=== PATIENT | male | born 2000 | race Caucasian/White ===

== ENCOUNTER 2023-08-06 15:04 | Emergency (ER) | payer OTHER, SELFPAY ==
[2023-08-06 15:33] VITALS: BP 132/89; PULSE 61; RESP 16; TEMP 37.6; O2SAT 100; BMI 32.8
--- NOTE | 2023-08-06 17:51 | ED_ITS ---
HPI - Back Pain/Injury <PAIGE Sierra - Last Filed: 08/06/23 17:57> General Chief Complaint: Back Pain/Injury Stated Complaint: Lower back pain Time Seen by Provider: 08/06/23 17:32 Source: patient History of Present Illness HPI Narrative: 22-year-old male, active duty member, presents to the emergency department with low back pain x2 days. Patient is a Load master on a [employer] and does not recall hurting his back, but noticed that it was stiff after exiting the playing and difficult and painful to move the following morning. Patient denies any loss of control of bowel or bladder, bilateral leg numbness and tingling or inability to stand or walk. Patient does endorse a hereditary issue with low back, even though he is never injured his back in the past. Related Data Previous Rx's Medication Instructions Recorded methocarbamol 500 mg tablet 500 mg PO TID 3 days #9 tabs 08/06/23 methylprednisolone 4 mg tablets in See Rx Instructions PO .COMPLEX 08/06/23 a dose pack (Medrol (Gilson)) #21 ea Allergies Allergy/AdvReac Type Severity Reaction Status Date / Time No Known Drug Allergies Allergy Verified 08/06/23 15:28 Review of Systems <PAIGE Sierra - Last Filed: 08/06/23 17:57> Review of Systems Narrative: Narrative: See HPI. GENERAL: Denies chills, fatigue, fever, sweats. RESPIRATORY: Denies dyspnea, cough, wheezing, sputum. CARDIOVASCULAR: Denies chest pain, palpitations, edema. GASTROINTESTINAL: Denies nausea, vomiting, abdominal pain, diarrhea, constipation. : Denies dysuria, frequency, incontinence, hematuria, urinary retention, flank pain, loss of control of bowel or bladder. MSK: Denies weakness, joint pain, or bony pain. SKIN: Denies rash, skin lesions, or pruritis. NEUROLOGIC: Denies weakness, dizziness, headache, numbness or tingling, confusion. Patient History <PAIGE Sierra - Last Filed: 08/06/23 17:57> Social History Smoking Status: Never smoker Smoking Status: Never smoker alcohol intake frequency: holidays/special occasions only Substance Use Type: does not use Exam <PAIGE Sierra - Last Filed: 08/06/23 17:57> Narrative Exam Narrative: Exam Narrative: GENERAL: This is a well-nourished, well-developed patient, in no acute distress. HEAD: Atraumatic. Normocephalic. EYES: Pupils equal round and reactive. No scleral icterus, injection or drainage. ENT: Nose without bleeding, purulent drainage. Airway patent. CARDIOVASCULAR: Regular rate and rhythm without murmurs, peripheral pulses intact, cap refill <2 sec. RESPIRATORY: Breath sounds equal and clear bilaterally. No wheezes, rales, or rhonchi. No cough. No increased respiratory effort. No accessory muscle use. MSK: Moves all extremities. Normal range of motion, no clubbing or edema. Neurovascularly intact. NEURO: A&O x 3. SKIN: Warm, dry, no rashes or lesions noted. BACK rubber heel and sole press tender but free of any obvious external abnormalities. There is no asymmetry, swelling, bruising or wound. There is no paraspinal tenderness or CVA tenderness. SI joints nontender. No pain over spinous processes. No symptoms of cauda equina such as saddle anesthesia. Sensation is grossly intact. ROM is limited in the flexion and extension due to pain. Resistive strengths are within normal limits Gait is normal. Heel toe balance is intact. Initial Vital Signs Initial Vital Signs: Vital Signs Temperature 99.6 F 08/06/23 15:33 Pulse Rate 61 08/06/23 15:33 Respiratory Rate 16 08/06/23 15:33 Blood Pressure 132/89 08/06/23 15:33 Pulse Oximetry 100 08/06/23 15:33 Oxygen Delivery Method Room Air 08/06/23 15:33 Reviewed <Federico Ratliff MD - Last Filed: 08/07/23 18:43> Initial Vital Signs Initial Vital Signs: Vital Signs Temperature 99.6 F 08/06/23 15:33 Pulse Rate 61 08/06/23 15:33 Respiratory Rate 16 08/06/23 15:33 Blood Pressure 132/89 08/06/23 15:33 Pulse Oximetry 100 08/06/23 15:33 Oxygen Delivery Method Room Air 08/06/23 15:33 Course <PAIGE Sierra - Last Filed: 08/06/23 17:57> Vital Signs Vital signs: Vital Signs - 8 hr 08/06/23 15:33 Temperature 99.6 F Pulse Rate 61 Respiratory Rate 16 Blood Pressure 132/89 Pulse Oximetry 100 Oxygen Delivery Method Room Air <Federico Ratliff MD - Last Filed: 08/07/23 18:43> Vital Signs Vital signs: Vital Signs - 8 hr 08/06/23 15:33 Temperature 99.6 F Pulse Rate 61 Respiratory Rate 16 Blood Pressure 132/89 Pulse Oximetry 100 Oxygen Delivery Method Room Air MDM - Back Pain/Injury <PAIGE Sierra - Last Filed: 08/06/23 17:57> Differential Diagnosis Differential diagnosis: Likely lumbar radiculopathy, sciatica and strain of lumbar region MDM Narrative Medical decision making narrative: 22-year-old male with low back strain. Assessment was consistent with a low back strain. No neuro deficits. Consideration included that injury was non- traumatic, patient is not a IV drug user, no fever, neurovascular intact, no weakness, no signs of epidural abscess or saddle anesthesia. Discussed supportive care measures that include rest, gentle range of motion stretching exercises, hot or cold compresses, core exercises, NSAIDs and will trial a Medrol Dosepak and muscle relaxers. 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 Work note provided. Discussed plan of care and return precautions with patient and spouse, who verbalized understanding and were agreeable with course of action. <Federico Ratliff MD - Last Filed: 08/07/23 18:43> MDM Narrative Medical decision making narrative: 22-year-old male with low back strain. Assessment was consistent with a low back strain. No neuro deficits. Consideration included that injury was non- traumatic, patient is not a IV drug user, no fever, neurovascular intact, no weakness, no signs of epidural abscess or saddle anesthesia. Discussed supportive care measures that include rest, gentle range of motion stretching exercises, hot or cold compresses, core exercises, NSAIDs and will trial a Medrol Dosepak and muscle relaxers. 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 Work note provided. Discussed plan of care and return precautions with patient and spouse, who verbalized understanding and were agreeable with course of action. I was immediately available in the department for consultation. Documentation has been reviewed. I agree with assessment and plan. Discharge Plan Departure Patient Disposition: Home Clinical Impression: Acute low back pain Instructions: DI for Low Back Pain Activity Restrictions/Additional Instructions: *You have been diagnosed with a low back strain. This may take some time to recover so good supportive care that includes rest, gentle range of motion stretching exercises, hot or cold compresses to the affected site, ibuprofen 800 mg 3 times a day with food for the next 3-5 days. Take the prednisone and muscle relaxers as prescribed. Please follow-up with your family doctor, but should take off the rest of the week to ensure your symptoms have improved. For any worsening symptoms that include numbness and tingling or loss of control of bowel or bladder, please come to the emergency department immediately. *What to do: *Please continue to take your regular medications as directed. [x ] New medication prescriptions sent to your pharmacy: [[facility]] [ ] New medication written as a paper prescription [ ] No new medications given *Please follow up with your primary care provider in 2-3 days, call for an appointment. Let them know you were seen in the Emergency Department and that we ask that you be seen in follow up. We will electronically transmit a record of today's note if your PCP is in our system *If you do not have a primary care provider please contact the [facility] Resource line at [phone]. They will ask some questions about your medical history and help get you set up with a doctor in the community. ? Return to ER if you should have any new, worsening or concerning symptoms, such as worsening pain, severe headache, confusion, chest pain, difficulty breathing, fever greater than 101 F, shaking chills, persistent vomiting to the point that you cannot drink fluids, or other new or worsening symptoms. Prescriptions: New methylprednisolone [Medrol (Gilson)] 4 mg tablets,dose pack See Rx Instructions .ROUTE .COMPLEX Qty: 21 0RF Rx Instructions: orally per package directions methocarbamol 500 mg tablet 500 mg PO TID 3 Days Qty: 9 0RF Referrals: ProviderConnie [Primary Care Provider] - Stand Alone Forms: Patient Portal/API, Work Release Note
[2023-08-06 17:56] VITALS: BP 125/65; PULSE 62; RESP 18; O2SAT 98
== END 2023-08-06 17:59 | disposition home or self-care (01) ==
PROVIDERS: Emergency Provider Registered Nurse
DX: M54.50 Low back pain, unspecified (principal)
CPT/HCPCS: 99281; 99283